=== PATIENT | male | born 1950 | race African-American/Black ===

== ENCOUNTER 2018-11-29 19:25 | Inpatient (IN) | payer MEDICARE, MEDICAID ==
[~2018-11-29] VITALS: Ht 180.3 cm; Wt 60.8 kg
[2018-11-29] MEDS ORDERED: ONDANSETRON HCL 4MG/2ML INJ IV STA (20:16)
[2018-11-29] MEDS ORDERED: MORPHINE SULFATE 4 MG/ML CPJ (NOT FOR IM USE) IV STA (20:16)
[2018-11-29] MEDS ORDERED: SODIUM CHLORIDE 0.9% 500 ML IV ONE (20:30)
[2018-11-29 20:35] LABS: BASOPHILS % 0.2 % (0.0-2.0); CHLORIDE 109 mEq/L (98-107); EOSINOPHILS % 0.1 % (0.0-5.0); LYMPHOCYTES % 10.7 % (20.0-50.0); MEAN CORPUSCULAR HEMOGLOBIN 24.4 pg (28.0-32.0); MEAN CORPUSCULAR VOLUME 79.5 fL (80.0-94.0); MEAN PLATELET VOLUME 6.9 fl (7.4-10.4); MONOCYTES % 6.5 % (2.0-8.0); NEUTROPHILS % 82.5 % (40.0-76.0); PLATELET 617 x1000/uL (130-400); RED BLOOD CELL COUNT 2.35 mill/uL (4.7-6.1); RED CELL DISTRIBUTION WIDTH 19.6 % (11.6-14.6)
[2018-11-29 20:41] LABS: INR 1.3; PROTHROMBIN TIME 13.5 sec (9.1-11.1)
[2018-11-29 20:42] LABS: HEMATOCRIT. 18.7 % (42.0-52.0); HEMOGLOBIN. 5.7 g/dL (14.0-18.0)
[2018-11-29] MEDS ORDERED: POTASSIUM CHLORIDE INJ 40 MEQ in DEXT 5% WATER 250 ML IV ONE (21:00)
[2018-11-29] MEDS ORDERED: POTASSIUM CHLORIDE 20MEQ TABLET SR PO ONE (21:00)
[2018-11-29] MEDS ORDERED: CEFTRIAXONE 1 G PREMIX 50 ML IV ONE (21:15)
[2018-11-29] MEDS ORDERED: SODIUM CHLORIDE 0.9% 1,000 ML IV ONE (21:30)
[2018-11-29] MEDS ORDERED: VANCOMYCIN 1 G PREMIX 200 ML IV SCH (21:30)
[2018-11-29] MEDS ORDERED: PIPERACILLIN/TAZ 3.375G PREMIX 50 ML IV ONE (21:30)
[2018-11-29] MEDS ORDERED: ACETAMINOPHEN 325MG TABLET PO PRN (21:45)
[2018-11-29] MEDS ORDERED: ONDANSETRON HCL 4MG/2ML INJ IV PRN (21:45)
[2018-11-29] MEDS ORDERED: HYDROMORPHONE HCL/PF 2MG/ML CPJ IV ONE (22:30)
[2018-11-30] VITALS (22 sets, daily range): BP systolic 99–128; BP diastolic 66–87
[2018-11-30] MEDS: HYDROMORPHONE HCL/PF 2MG/ML CPJ IV PRN ×4 (04:24→20:40)
[2018-11-30] MEDS: LEVOFLOXACIN 500MG PREMIX 100 ML IV SCH (06:11)
[2018-11-30] MEDS: DEXT 5%/0.45% NACL KCL 10MEQ/L 1,000 ML IV SCH ×2 (07:45→18:38)
[2018-11-30] MEDS: METRONIDAZOLE 500 MG PREMIX 100 ML IV SCH ×3 (07:46→21:40)
[2018-11-30 09:08] LABS: BASOPHILS % 0.1 % (0.0-2.0); LYMPHOCYTES % 7.6 % (20.0-50.0); MEAN CORPUSCULAR HEMOGLOBIN 24.5 pg (28.0-32.0); MEAN CORPUSCULAR VOLUME 79.8 fL (80.0-94.0); MEAN PLATELET VOLUME 6.9 fl (7.4-10.4); MONOCYTES % 5.5 % (2.0-8.0); NEUTROPHILS % 86.8 % (40.0-76.0); PLATELET 571 x1000/uL (130-400); RED BLOOD CELL COUNT 2.36 mill/uL (4.7-6.1); RED CELL DISTRIBUTION WIDTH 19.1 % (11.6-14.6)
[2018-11-30 09:12] LABS: CHLORIDE 113 mEq/L (98-107)
[2018-11-30 09:26] LABS: HEMATOCRIT. 18.8 % (42.0-52.0); HEMOGLOBIN. 5.8 g/dL (14.0-18.0)
[2018-11-30] MEDS ORDERED: SODIUM BICARBONATE 4% (2.4MEQ) 5ML VIAL IV ONE (13:27)
[2018-11-30] MEDS ORDERED: LIDOCAINE HCL 1% 20ML VIAL (Pyxis) INJ ONE ×2 (13:27→14:46)
[2018-11-30] MEDS ORDERED: FENTANYL CITRATE/PF 50MCG/ML 2ML VIAL ONE (13:30)
[2018-11-30] MEDS ORDERED: FENTANYL CITRATE/PF 50MCG/ML 2ML VIAL IV ONE (15:30)
[2018-11-30] MEDS: NYSTATIN POWDER 15GM TOP SCH ×2 (16:07→18:38)
[2018-11-30] MEDS: PANTOPRAZOLE SODIUM 40 MG/VIAL IV SCH (16:07)
[2018-11-30 23:58] LABS: TOTAL IRON BINDING CAPACITY 282 ug/dL (250-450)
[2018-12-01] VITALS (9 sets, daily range): BP systolic 116–136; BP diastolic 74–87
[2018-12-01] MEDS: HYDROMORPHONE HCL/PF 2MG/ML CPJ IV PRN ×5 (02:21→23:41)
[2018-12-01 03:56] LABS: HEMATOCRIT. 25.7 % (42.0-52.0); MEAN CORPUSCULAR HEMOGLOBIN 26.3 pg (28.0-32.0); MEAN CORPUSCULAR VOLUME 84.1 fL (80.0-94.0); MEAN PLATELET VOLUME 6.9 fl (7.4-10.4); PLATELET 432 x1000/uL (130-400); RED BLOOD CELL COUNT 3.06 mill/uL (4.7-6.1); RED CELL DISTRIBUTION WIDTH 18.6 % (11.6-14.6)
[2018-12-01] MEDS: METRONIDAZOLE 500 MG PREMIX 100 ML IV SCH ×3 (05:40→23:41)
[2018-12-01] MEDS: LEVOFLOXACIN 500MG PREMIX 100 ML IV SCH (06:45)
[2018-12-01 07:48] LABS: PLATELET ESTIMATE SLIGHTLY INCREASED
[2018-12-01] MEDS: PANTOPRAZOLE SODIUM 40 MG/VIAL IV SCH (09:17)
[2018-12-01] MEDS: NYSTATIN POWDER 15GM TOP SCH ×3 (09:20→18:00)
[2018-12-01 16:32] LABS: HEMATOCRIT 21.6 % (42.0-52.0)
[2018-12-01 16:42] LABS: HEMOGLOBIN 6.9 g/dL (14.0-18.0)
[2018-12-01] MEDS: DEXT 5%/0.45% NACL KCL 10MEQ/L 1,000 ML IV SCH (17:59)
[2018-12-02] VITALS (11 sets, daily range): BP systolic 118–139; BP diastolic 74–89
[2018-12-02] MEDS: LEVOFLOXACIN 500MG PREMIX 100 ML IV SCH (04:00)
[2018-12-02] MEDS: HYDROMORPHONE HCL/PF 2MG/ML CPJ IV PRN ×5 (04:00→22:06)
[2018-12-02] MEDS: DEXT 5%/0.45% NACL KCL 10MEQ/L 1,000 ML IV SCH ×2 (05:50→19:10)
[2018-12-02] MEDS: PANTOPRAZOLE SODIUM 40 MG/VIAL IV SCH (09:04)
[2018-12-02] MEDS: METRONIDAZOLE 500 MG PREMIX 100 ML IV SCH ×2 (09:05→17:23)
[2018-12-02 13:21] LABS: HEMATOCRIT 25.3 % (42.0-52.0); HEMOGLOBIN 8.2 g/dL (14.0-18.0)
[2018-12-02] MEDS: NYSTATIN POWDER 15GM TOP SCH ×3 (13:37→17:23)
[2018-12-02 21:26] LABS: HEMATOCRIT 25.7 % (42.0-52.0); HEMOGLOBIN 8.3 g/dL (14.0-18.0)
[2018-12-03] VITALS: BP 123/75
[2018-12-03 01:05] LABS: HEMATOCRIT 25.9 % (42.0-52.0); HEMOGLOBIN 8.4 g/dL (14.0-18.0)
[2018-12-03] MEDS: METRONIDAZOLE 500 MG PREMIX 100 ML IV SCH ×2 (01:13→08:35)
[2018-12-03] MEDS: HYDROMORPHONE HCL/PF 2MG/ML CPJ IV PRN ×6 (02:13→23:16)
[2018-12-03 04:00] VITALS: BP 131/88
[2018-12-03] MEDS ORDERED: LEVOFLOXACIN 500MG PREMIX 100 ML IV SCH (05:00)
[2018-12-03 06:44] LABS: HEMATOCRIT 25.5 % (42.0-52.0); HEMOGLOBIN 8.4 g/dL (14.0-18.0)
[2018-12-03 06:57] LABS: CHLORIDE 108 mEq/L (98-107)
[2018-12-03 08:00] VITALS: BP 124/66
[2018-12-03] MEDS: PANTOPRAZOLE SODIUM 40 MG/VIAL IV SCH (08:35)
[2018-12-03] MEDS: NYSTATIN POWDER 15GM TOP SCH ×3 (08:36→18:18)
[2018-12-03] MEDS: POTASSIUM CHLORIDE INJ 40 MEQ in DEXT 5% WATER 250 ML IV SCH ×2 (09:24→13:51)
[2018-12-03 12:00] VITALS: BP 114/77
[2018-12-03 12:04] LABS: HEMATOCRIT 24.8 % (42.0-52.0); HEMOGLOBIN 8.1 g/dL (14.0-18.0)
[2018-12-03] MEDS ORDERED: VANCOMYCIN 1250MG in DEXTROSE 5% WATER 250ML IV SCH (14:00)
[2018-12-03] MEDS: PIPERACILLIN/TAZ 3.375G PREMIX 50 ML IV SCH ×2 (14:16→21:21)
[2018-12-03 16:00] VITALS: BP 112/71
[2018-12-03 20:00] VITALS: BP 112/73
[2018-12-03 20:07] LABS: HEMOGLOBIN 8.1 g/dL (14.0-18.0)
[2018-12-03] MEDS: DEXT 5%/0.45% NACL KCL 10MEQ/L 1,000 ML IV SCH ×2 (21:21→21:50)
[2018-12-03] MEDS: VANCOMYCIN 750 MG PREMIX 150 ML IV SCH (23:11)
[2018-12-04 04:00] VITALS: BP 129/80
[2018-12-04] MEDS: HYDROMORPHONE HCL/PF 2MG/ML CPJ IV PRN ×4 (05:31→19:07)
[2018-12-04] MEDS: PIPERACILLIN/TAZ 3.375G PREMIX 50 ML IV SCH ×3 (05:32→21:43)
[2018-12-04] MEDS: VANCOMYCIN 750 MG PREMIX 150 ML IV SCH ×2 (06:06→14:02)
[2018-12-04 06:09] LABS: BASOPHILS % 0.1 % (0.0-2.0); EOSINOPHILS % 0.3 % (0.0-5.0); HEMOGLOBIN. 7.9 g/dL (14.0-18.0); LYMPHOCYTES % 10.1 % (20.0-50.0); MEAN CORPUSCULAR HEMOGLOBIN 27.4 pg (28.0-32.0); MEAN CORPUSCULAR VOLUME 83.8 fL (80.0-94.0); MEAN PLATELET VOLUME 7.1 fl (7.4-10.4); MONOCYTES % 7.3 % (2.0-8.0); NEUTROPHILS % 82.2 % (40.0-76.0); PLATELET 286 x1000/uL (130-400); RED BLOOD CELL COUNT 2.87 mill/uL (4.7-6.1)
[2018-12-04 06:21] LABS: CHLORIDE 108 mEq/L (98-107)
[2018-12-04 08:00] VITALS: BP 135/80
[2018-12-04] MEDS: PANTOPRAZOLE SODIUM 40 MG/VIAL IV SCH (09:07)
[2018-12-04] MEDS: NYSTATIN POWDER 15GM TOP SCH ×3 (09:07→19:07)
[2018-12-04] MEDS ORDERED: DIATR MEGLU/DIATRIZOATE SOLN 30ML PO SCH (09:30)
[2018-12-04] MEDS ORDERED: IOHEXOL-300 50 ML BOTTLE IV ONE (11:07)
[2018-12-04] MEDS ORDERED: POTASSIUM CHLORIDE 20MEQ/PACKET PO NR (11:15)
[2018-12-04 12:00] VITALS: BP 158/74
[2018-12-04 12:05] LABS: HEMATOCRIT 27.9 % (42.0-52.0); HEMOGLOBIN 8.9 g/dL (14.0-18.0)
[2018-12-04] MEDS ORDERED: MAGNESIUM 2 G PREMIX 50 ML IV NR (13:00)
[2018-12-04 20:00] VITALS: BP 115/73
[2018-12-04] MEDS: DEXT 5%/0.45% NACL KCL 10MEQ/L 1,000 ML IV SCH (21:42)
[2018-12-04 22:02] LABS: HEMOGLOBIN 7.8 g/dL (14.0-18.0)
[2018-12-05] VITALS: BP 119/78
[2018-12-05] MEDS: DEXT 5%/0.45% NACL KCL 10MEQ/L 1,000 ML IV SCH (00:30)
[2018-12-05] MEDS: HYDROMORPHONE HCL/PF 2MG/ML CPJ IV PRN ×4 (00:54→16:09)
[2018-12-05] MEDS: VANCOMYCIN 1 G PREMIX 200 ML IV SCH ×2 (02:13→13:42)
[2018-12-05 04:00] VITALS: BP 128/76
[2018-12-05] MEDS: PIPERACILLIN/TAZ 3.375G PREMIX 50 ML IV SCH ×3 (06:43→21:16)
[2018-12-05 07:21] LABS: HEMATOCRIT 23.9 % (42.0-52.0)
[2018-12-05 07:43] LABS: CHLORIDE 108 mEq/L (98-107)
[2018-12-05 07:59] LABS: PHOSPHORUS 2.5 mg/dL (2.5-4.9)
[2018-12-05 08:00] VITALS: BP 124/79
[2018-12-05] MEDS: PANTOPRAZOLE SODIUM 40 MG/VIAL IV SCH (09:16)
[2018-12-05] MEDS: NYSTATIN POWDER 15GM TOP SCH ×3 (09:22→16:19)
[2018-12-05] MEDS ORDERED: PANTOPRAZOLE SODIUM 40 MG/VIAL IV SCH (09:30)
[2018-12-05] MEDS ORDERED: ONDANSETRON HCL 4MG/2ML INJ IV PRN (09:30)
[2018-12-05] MEDS ORDERED: SODIUM CHLORIDE 0.9% 1,000 ML IV SCH (09:30)
[2018-12-05 12:00] VITALS: BP 104/78
[2018-12-05 12:05] LABS: HEMATOCRIT 23.2 % (42.0-52.0); HEMOGLOBIN 7.6 g/dL (14.0-18.0)
[2018-12-05 16:00] VITALS: BP 110/71
[2018-12-05 20:00] VITALS: BP 120/77
[2018-12-05] MEDS: MORPHINE SULFATE 4 MG/ML CPJ (NOT FOR IM USE) IV PRN (21:16)
[2018-12-06] VITALS: BP 128/86
[2018-12-06] MEDS: VANCOMYCIN 1 G PREMIX 200 ML IV SCH ×2 (02:12→15:04)
[2018-12-06] MEDS: HYDROMORPHONE HCL/PF 2MG/ML CPJ IV PRN ×5 (02:13→22:31)
[2018-12-06 04:00] VITALS: BP 126/73
[2018-12-06] MEDS: PIPERACILLIN/TAZ 3.375G PREMIX 50 ML IV SCH ×3 (05:38→21:49)
[2018-12-06 08:00] VITALS: BP 120/80
[2018-12-06] MEDS: PANTOPRAZOLE SODIUM 40 MG/VIAL IV SCH (08:13)
[2018-12-06] MEDS: NYSTATIN POWDER 15GM TOP SCH ×3 (08:14→17:39)
[2018-12-06] MEDS: MORPHINE SULFATE 4 MG/ML CPJ (NOT FOR IM USE) IV PRN (11:37)
[2018-12-06 12:00] VITALS: BP 115/68
[2018-12-06] MEDS: DEXT 5%/0.45% NACL KCL 10MEQ/L 1,000 ML IV SCH (13:08)
[2018-12-06 16:00] VITALS: BP 102/66
[2018-12-06 20:00] VITALS: BP 121/73
[2018-12-07] VITALS: BP 147/79
[2018-12-07] MEDS: VANCOMYCIN 1 G PREMIX 200 ML IV SCH ×2 (01:07→13:31)
[2018-12-07] MEDS: DEXT 5%/0.45% NACL KCL 10MEQ/L 1,000 ML IV SCH ×2 (01:08→22:37)
[2018-12-07] MEDS: HYDROMORPHONE HCL/PF 2MG/ML CPJ IV PRN ×4 (02:55→20:57)
[2018-12-07 04:00] VITALS: BP 127/76
[2018-12-07] MEDS: PIPERACILLIN/TAZ 3.375G PREMIX 50 ML IV SCH ×3 (06:24→21:01)
[2018-12-07 07:51] LABS: CHLORIDE 113 mEq/L (98-107)
[2018-12-07 08:00] VITALS: BP 128/76
[2018-12-07] MEDS: PANTOPRAZOLE SODIUM 40 MG/VIAL IV SCH (08:58)
[2018-12-07] MEDS: NYSTATIN POWDER 15GM TOP SCH ×3 (08:59→16:29)
[2018-12-07 12:00] VITALS: BP 119/74
[2018-12-07] MEDS ORDERED: POTASSIUM CHLORIDE 20MEQ/PACKET PO NR (15:15)
[2018-12-07 16:00] VITALS: BP 113/71
[2018-12-07] MEDS ORDERED: KCL 20MEQ/100ML PREMIX 100 ML IV SCH (16:30)
[2018-12-07 20:00] VITALS: BP 126/77
[2018-12-08] VITALS: BP 131/83
[2018-12-08] MEDS: VANCOMYCIN 750 MG PREMIX 150 ML IV SCH ×2 (01:01→13:18)
[2018-12-08] MEDS: HYDROMORPHONE HCL/PF 2MG/ML CPJ IV PRN ×6 (01:02→21:27)
[2018-12-08 04:00] VITALS: BP 131/88
[2018-12-08] MEDS: PIPERACILLIN/TAZ 3.375G PREMIX 50 ML IV SCH ×3 (05:02→21:26)
[2018-12-08 06:33] LABS: BASOPHILS % 0.2 % (0.0-2.0); EOSINOPHILS % 0.4 % (0.0-5.0); HEMATOCRIT. 23.6 % (42.0-52.0); HEMOGLOBIN. 7.6 g/dL (14.0-18.0); LYMPHOCYTES % 10.8 % (20.0-50.0); MEAN CORPUSCULAR HEMOGLOBIN 26.9 pg (28.0-32.0); MEAN CORPUSCULAR VOLUME 83.2 fL (80.0-94.0); MEAN PLATELET VOLUME 7.3 fl (7.4-10.4); MONOCYTES % 10.5 % (2.0-8.0); NEUTROPHILS % 78.1 % (40.0-76.0); PLATELET 409 x1000/uL (130-400); RED BLOOD CELL COUNT 2.83 mill/uL (4.7-6.1); RED CELL DISTRIBUTION WIDTH 19.7 % (11.6-14.6)
[2018-12-08 08:00] VITALS: BP 130/89
[2018-12-08] MEDS: PANTOPRAZOLE SODIUM 40 MG/VIAL IV SCH (09:14)
[2018-12-08] MEDS: DEXT 5%/0.45% NACL KCL 10MEQ/L 1,000 ML IV SCH ×2 (09:14→21:26)
[2018-12-08] MEDS: POTASSIUM CHLORIDE 20MEQ TABLET SR PO SCH (09:14)
[2018-12-08] MEDS: NYSTATIN POWDER 15GM TOP SCH ×3 (09:30→17:20)
[2018-12-08 12:00] VITALS: BP 125/82
[2018-12-08 16:00] VITALS: BP 132/69
[2018-12-08 20:00] VITALS: BP 126/77
[2018-12-09] VITALS: BP 119/76
[2018-12-09] MEDS: VANCOMYCIN 750 MG PREMIX 150 ML IV SCH (02:11)
[2018-12-09] MEDS: HYDROMORPHONE HCL/PF 2MG/ML CPJ IV PRN ×6 (02:18→23:33)
[2018-12-09 04:00] VITALS: BP 129/80
[2018-12-09] MEDS: PIPERACILLIN/TAZ 3.375G PREMIX 50 ML IV SCH ×3 (06:03→21:46)
[2018-12-09 07:18] LABS: CHLORIDE 119 mEq/L (98-107)
[2018-12-09 08:00] VITALS: BP 134/84
[2018-12-09] MEDS: PANTOPRAZOLE SODIUM 40 MG/VIAL IV SCH (09:52)
[2018-12-09] MEDS: POTASSIUM CHLORIDE 20MEQ TABLET SR PO SCH (09:53)
[2018-12-09] MEDS: NYSTATIN POWDER 15GM TOP SCH ×3 (09:54→17:59)
[2018-12-09] MEDS: DEXT 5%/0.45% NACL KCL 10MEQ/L 1,000 ML IV SCH (11:54)
[2018-12-09 12:00] VITALS: BP 121/78
[2018-12-09 16:33] VITALS: BP 118/76
[2018-12-09] MEDS ORDERED: HYDROMORPHONE HCL/PF 2MG/ML CPJ IV PRN (18:15)
[2018-12-09 20:00] VITALS: BP 113/75
[2018-12-10] VITALS: BP 121/80
[2018-12-10 04:00] VITALS: BP 117/73
[2018-12-10] MEDS: HYDROMORPHONE HCL/PF 2MG/ML CPJ IV PRN ×5 (04:07→21:40)
[2018-12-10] MEDS: PIPERACILLIN/TAZ 3.375G PREMIX 50 ML IV SCH ×2 (05:51→15:33)
[2018-12-10] MEDS: DEXT 5%/0.45% NACL KCL 10MEQ/L 1,000 ML IV SCH ×2 (05:51→15:34)
[2018-12-10 08:00] VITALS: BP 121/68
[2018-12-10] MEDS: POTASSIUM CHLORIDE 20MEQ TABLET SR PO SCH (08:29)
[2018-12-10] MEDS: PANTOPRAZOLE SODIUM 40 MG/VIAL IV SCH (08:29)
[2018-12-10] MEDS: NYSTATIN POWDER 15GM TOP SCH ×2 (08:30→15:34)
[2018-12-10 12:00] VITALS: BP 128/84
[2018-12-10 17:00] VITALS: BP 124/71
[2018-12-10 20:00] VITALS: BP 123/71
[2018-12-11] VITALS: BP 121/76
[2018-12-11] MEDS: HYDROMORPHONE HCL/PF 2MG/ML CPJ IV PRN ×7 (01:37→23:11)
[2018-12-11 04:00] VITALS: BP 124/79
[2018-12-11] MEDS: DEXT 5%/0.45% NACL KCL 10MEQ/L 1,000 ML IV SCH ×2 (05:18→19:32)
[2018-12-11 08:00] VITALS: BP 123/75
[2018-12-11] MEDS: PANTOPRAZOLE SODIUM 40 MG/VIAL IV SCH (09:06)
[2018-12-11] MEDS: POTASSIUM CHLORIDE 20MEQ TABLET SR PO SCH (09:07)
[2018-12-11 12:00] VITALS: BP 141/90
[2018-12-11] MEDS: PIPERACILLIN/TAZ 3.375G PREMIX 50 ML IV SCH ×2 (15:04→21:09)
[2018-12-11 16:00] VITALS: BP 125/75
[2018-12-11 20:00] VITALS: BP 131/83
[2018-12-12] VITALS: BP 159/84
[2018-12-12] MEDS: HYDROMORPHONE HCL/PF 2MG/ML CPJ IV PRN ×5 (02:57→20:26)
[2018-12-12 04:00] VITALS: BP 119/77
[2018-12-12] MEDS: PIPERACILLIN/TAZ 3.375G PREMIX 50 ML IV SCH ×3 (06:06→23:25)
[2018-12-12 08:00] VITALS: BP 129/79
[2018-12-12] MEDS: POTASSIUM CHLORIDE 20MEQ TABLET SR PO SCH (09:18)
[2018-12-12] MEDS: PANTOPRAZOLE SODIUM 40 MG/VIAL IV SCH (09:18)
[2018-12-12] MEDS: HYDROCODONE/ACETAMINOPHEN 10/325MG TABLET PO PRN ×2 (11:05→23:38)
[2018-12-12 12:00] VITALS: BP 129/78
[2018-12-12] MEDS: DEXT 5%/0.45% NACL KCL 10MEQ/L 1,000 ML IV SCH ×2 (14:04→19:10)
[2018-12-12 16:00] VITALS: BP 107/67
[2018-12-12 20:00] VITALS: BP 129/75
[2018-12-13] VITALS: BP 122/80
[2018-12-13] MEDS: HYDROMORPHONE HCL/PF 2MG/ML CPJ IV PRN ×4 (03:44→18:29)
[2018-12-13 04:00] VITALS: BP 131/79
[2018-12-13] MEDS: DEXT 5%/0.45% NACL KCL 10MEQ/L 1,000 ML IV SCH ×2 (04:48→23:22)
[2018-12-13] MEDS: PIPERACILLIN/TAZ 3.375G PREMIX 50 ML IV SCH ×3 (06:37→23:22)
[2018-12-13 07:03] LABS: BASOPHILS % 0.4 % (0.0-2.0); EOSINOPHILS % 0.7 % (0.0-5.0); HEMATOCRIT. 24.6 % (42.0-52.0); HEMOGLOBIN. 7.8 g/dL (14.0-18.0); LYMPHOCYTES % 10.2 % (20.0-50.0); MEAN CORPUSCULAR HEMOGLOBIN 26.6 pg (28.0-32.0); MEAN CORPUSCULAR VOLUME 83.5 fL (80.0-94.0); MEAN PLATELET VOLUME 7.7 fl (7.4-10.4); MONOCYTES % 8.7 % (2.0-8.0); PLATELET 465 x1000/uL (130-400); RED BLOOD CELL COUNT 2.94 mill/uL (4.7-6.1); RED CELL DISTRIBUTION WIDTH 21.1 % (11.6-14.6)
[2018-12-13 07:54] LABS: CHLORIDE 114 mEq/L (98-107)
[2018-12-13] MEDS: POTASSIUM CHLORIDE 20MEQ TABLET SR PO SCH (08:10)
[2018-12-13] MEDS: PANTOPRAZOLE SODIUM 40 MG/VIAL IV SCH (08:10)
[2018-12-13 10:14] VITALS: BP 129/78
[2018-12-13] MEDS: HYDROCODONE/ACETAMINOPHEN 10/325MG TABLET PO PRN ×2 (14:48→22:26)
[2018-12-13 16:00] VITALS: BP 111/71
[2018-12-13] MEDS ORDERED: POTASSIUM CHLORIDE 20MEQ TABLET SR PO NR (16:00)
[2018-12-13] MEDS ORDERED: POTASSIUM CHLORIDE INJ 40 MEQ in DEXT 5% WATER 250 ML IV NR (18:00)
[2018-12-13 20:00] VITALS: BP 121/79
[2018-12-14] VITALS: BP 121/79
[2018-12-14] MEDS: HYDROMORPHONE HCL/PF 2MG/ML CPJ IV PRN ×3 (01:50→22:04)
[2018-12-14 04:00] VITALS: BP 125/86
[2018-12-14] MEDS: PIPERACILLIN/TAZ 3.375G PREMIX 50 ML IV SCH (05:50)
[2018-12-14] MEDS: HYDROCODONE/ACETAMINOPHEN 10/325MG TABLET PO PRN ×3 (06:22→17:41)
[2018-12-14 08:00] VITALS: BP 127/78
[2018-12-14] MEDS: POTASSIUM CHLORIDE 20MEQ TABLET SR PO SCH (09:12)
[2018-12-14] MEDS: PANTOPRAZOLE SODIUM 40 MG/VIAL IV SCH (09:12)
[2018-12-14 12:11] VITALS: BP_SYST 121; BP_SYST 127; BP_DIAS 59; BP_DIAS 82
[2018-12-14 16:00] VITALS: BP 120/79
[2018-12-14 20:00] VITALS: BP 117/76
[2018-12-15] VITALS (7 sets, daily range): BP systolic 109–125; BP diastolic 67–78
[2018-12-15] MEDS: HYDROMORPHONE HCL/PF 2MG/ML CPJ IV PRN (04:04)
[2018-12-15] MEDS: PANTOPRAZOLE SODIUM 40 MG/VIAL IV SCH (08:37)
[2018-12-15] MEDS: POTASSIUM CHLORIDE 20MEQ TABLET SR PO SCH (08:37)
[2018-12-15] MEDS: HYDROCODONE/ACETAMINOPHEN 10/325MG TABLET PO PRN ×3 (08:39→18:46)
[2018-12-15] MEDS: DEXT 5%/0.45% NACL KCL 10MEQ/L 1,000 ML IV SCH (12:58)
== END 2018-12-15 21:27 | DRG 871 ==
LOC: ER 19:25 → 5WST 21:10 → EDBD 21:10 → SUPCPDRO 21:41 → EDBEDREQSVC 23:24 → ENRESERV 23:39 → 5WST 11-30 03:08
PROVIDERS: ADMIT Internal Medicine; ATTEND Internal Medicine
PROC: 02HV33Z Insertion of Infusion Device into Superior Vena Cava, Percutaneous Approach (ICD-10-PCS; principal; 2018-11-30)
PROC: B5181ZA Fluoroscopy of Superior Vena Cava using Low Osmolar Contrast, Guidance (ICD-10-PCS; 2018-11-30)
PROC: B548ZZA Ultrasonography of Superior Vena Cava, Guidance (ICD-10-PCS; 2018-11-30)
PROC: 30233N1 Transfusion of Nonautologous Red Blood Cells into Peripheral Vein, Percutaneous Approach (ICD-10-PCS; 2018-11-30)
PROC: 0W2GX0Z Change Drainage Device in Peritoneal Cavity, External Approach (ICD-10-PCS; 2018-11-30)
DX: A41.9 Sepsis, unspecified organism (principal); E43 Unspecified severe protein-calorie malnutrition; K65.1 Peritoneal abscess; C19 Malignant neoplasm of rectosigmoid junction; I42.9 Cardiomyopathy, unspecified; I96 Gangrene, not elsewhere classified; J44.1 Chronic obstructive pulmonary disease with (acute) exacerbation; I82.403 Acute embolism and thrombosis of unspecified deep veins of lower extremity, bilateral; Z68.1 Body mass index [BMI] 19.9 or less, adult; D50.9 Iron deficiency anemia, unspecified; I10 Essential (primary) hypertension; E87.6 Hypokalemia; K21.9 Gastro-esophageal reflux disease without esophagitis; D63.8 Anemia in other chronic diseases classified elsewhere; I25.10 Atherosclerotic heart disease of native coronary artery without angina pectoris; I25.2 Old myocardial infarction; Z87.01 Personal history of pneumonia (recurrent); Z87.891 Personal history of nicotine dependence; Z93.2 Ileostomy status; Z93.3 Colostomy status
CPT/HCPCS: 36415; 36569; 36573; 49180; 71045; 74176; 75984; 80048; 80076; 80202; 82378; 82728; 83540; 83550; 83605; 83735; 83880; 84100; 84134; 84484; 85014; 85018; 86850; 86870; 86900; 86920; 92610; 93005; 93922; 93970; 93971; 99291; A6261; C1725; C1729; C1769; C9113; J0696; J1170; J1956; J2270; J2405; J2543; J3010; J3370; J3475; J3480; J3490; J7030; J7040; J7050; J7060; P9016; Q9967; A4315

== ENCOUNTER 2018-12-25 11:14 | Inpatient (IN) | payer MEDICARE, MEDICAID ==
[~2018-12-25] VITALS: Ht 182.9 cm; Wt 56.7 kg
[2018-12-25] MEDS ORDERED: SODIUM CHLORIDE 0.9% 1000ML BAG (SEPSIS BOLUS) IV ONE (11:45)
[2018-12-25 12:13] LABS: BASOPHILS % 0.1 % (0.0-2.0); HEMATOCRIT. 23.3 % (42.0-52.0); HEMOGLOBIN. 7.1 g/dL (14.0-18.0); LYMPHOCYTES % 16.3 % (20.0-50.0); MEAN CORPUSCULAR HEMOGLOBIN 26.3 pg (28.0-32.0); MEAN CORPUSCULAR VOLUME 86.9 fL (80.0-94.0); MEAN PLATELET VOLUME 7.8 fl (7.4-10.4); MONOCYTES % 7.5 % (2.0-8.0); NEUTROPHILS % 76.1 % (40.0-76.0); PLATELET 476 x1000/uL (130-400); RED BLOOD CELL COUNT 2.69 mill/uL (4.7-6.1); RED CELL DISTRIBUTION WIDTH 23.8 % (11.6-14.6)
[2018-12-25 12:21] LABS: CHLORIDE 121 mEq/L (98-107); INR 1.5
[2018-12-25 12:36] LABS: CLARITY URINE CLOUDY (CLEAR); COLOR URINE AMBER (YELLOW); KETONES URINE TRACE (NEGATIVE); LEUKOCYTE ESTERASE URINE 1+ (NEGATIVE); NITRITE URINE NEGATIVE (NEGATIVE); OCCULT BLOOD URINE NEGATIVE (NEGATIVE); PROTEIN URINE 1+ (NEGATIVE); SPECIFIC GRAVITY URINE 1.021 (1.005-1.030); UROBILINOGEN URINE 0.2 E.U./dL (0.2-1.0)
[2018-12-25] MEDS ORDERED: CEFTRIAXONE 2 G PREMIX 50 ML IV ONE (12:45)
[2018-12-25] MEDS ORDERED: METRONIDAZOLE 500 MG PREMIX 100 ML IV ONE (12:45)
[2018-12-25 13:14] LABS: PLATELET ESTIMATE INCREASED
[2018-12-25] MEDS ORDERED: MAGNESIUM/ALUMINUM HYDROXIDE/SIMETHICONE 30ML UDC PO PRN (14:30)
[2018-12-25] MEDS ORDERED: ACETAMINOPHEN 325MG TABLET PO PRN (14:30)
[2018-12-25] MEDS ORDERED: IPRATROPIUM/ALBUTEROL 0.5-3(2.5)MG/3ML NEB INH PRN (14:30)
[2018-12-25] MEDS ORDERED: CLONIDINE 0.1MG TABLET PO PRN (14:30)
[2018-12-25] MEDS ORDERED: NA PHOS,M-B/NA PHOS,DI-BA ENEMA 118ML PR PRN (14:30)
[2018-12-25] MEDS ORDERED: GUAIFENESIN 200MG/10ML SUGAR FREE UDC PO PRN (14:30)
[2018-12-25] MEDS ORDERED: NITROGLYCERIN 0.4MG TABLET SL SL PRN (14:30)
[2018-12-25] MEDS ORDERED: ONDANSETRON HCL 4MG/2ML INJ IV PRN (14:30)
[2018-12-25] MEDS ORDERED: DOCUSATE SODIUM 100MG CAPSULE PO PRN (14:30)
[2018-12-25 15:59] VITALS: BP 165/55
[2018-12-25 16:00] VITALS: BP 127/83
[2018-12-25] MEDS ORDERED: ENOXAPARIN 40MG/0.4ML SYR SUBCUT SCH (16:00)
[2018-12-25] MEDS ORDERED: VANCOMYCIN 1500MG in DEXTROSE 5% WATER 250ML IV NR (17:00)
[2018-12-25 18:00] VITALS: BP 114/75
[2018-12-25] MEDS: PIPERACILLIN/TAZ 3.375G PREMIX 50 ML IV SCH ×2 (18:24→23:46)
[2018-12-25] MEDS: DEXT 5%/0.45% NACL 1000ML 1,000 ML IV SCH (18:27)
[2018-12-25 19:31] VITALS: BP 110/72
[2018-12-25 20:14] VITALS: BP 114/76
[2018-12-25] MEDS ORDERED: ZOLPIDEM TARTRATE 5MG TABLET PO PRN (21:00)
[2018-12-25] MEDS: ASCORBIC ACID 500 MG TABLET PO SCH (21:16)
[2018-12-25] MEDS: FAMOTIDINE 20MG TABLET PO SCH (21:16)
[2018-12-25] MEDS: TRAMADOL 50MG TABLET PO PRN (21:17)
[2018-12-25 22:07] VITALS: BP 103/70
[2018-12-26] VITALS (18 sets, daily range): BP systolic 102–121; BP diastolic 63–76
[2018-12-26] MEDS ORDERED: VANCOMYCIN 750 MG PREMIX 150 ML IV SCH ×2 (04:00→08:00)
[2018-12-26] MEDS: PIPERACILLIN/TAZ 3.375G PREMIX 50 ML IV SCH ×3 (06:33→18:43)
[2018-12-26 07:28] LABS: HEMATOCRIT 26.3 % (42.0-52.0); HEMOGLOBIN 8.4 g/dL (14.0-18.0)
[2018-12-26] MEDS: FAMOTIDINE 20MG TABLET PO SCH ×2 (08:05→20:14)
[2018-12-26] MEDS: ASCORBIC ACID 500 MG TABLET PO SCH ×2 (08:05→20:14)
[2018-12-26] MEDS: ZINC SULFATE 220 MG ( 50 ) CAPSULE PO SCH (08:05)
[2018-12-26] MEDS: MORPHINE SULFATE 4 MG/ML CPJ (NOT FOR IM USE) IV PRN (12:00)
[2018-12-26] MEDS: ENOXAPARIN 60MG/0.6ML SYR SUBCUT SCH (16:23)
[2018-12-26] MEDS: FLUCONAZOLE 100MG TABLET PO SCH (16:23)
[2018-12-26] MEDS: DEXT 5%/0.45% NACL 1000ML 1,000 ML IV SCH (16:24)
[2018-12-26] MEDS: TRAMADOL 50MG TABLET PO PRN (16:31)
[2018-12-26] MEDS ORDERED: VANCOMYCIN 1 G PREMIX 200 ML IV SCH (21:00)
[2018-12-27] VITALS (13 sets, daily range): BP systolic 93–122; BP diastolic 60–77
[2018-12-27] MEDS: PIPERACILLIN/TAZ 3.375G PREMIX 50 ML IV SCH ×5 (00:17→23:59)
[2018-12-27] MEDS: ENOXAPARIN 60MG/0.6ML SYR SUBCUT SCH ×2 (05:01→16:08)
[2018-12-27 06:19] LABS: HEMATOCRIT. 30.4 % (42.0-52.0); HEMOGLOBIN. 9.8 g/dL (14.0-18.0); MEAN CORPUSCULAR HEMOGLOBIN 27.6 pg (28.0-32.0); MEAN CORPUSCULAR VOLUME 85.6 fL (80.0-94.0); MEAN PLATELET VOLUME 8.4 fl (7.4-10.4); PLATELET 407 x1000/uL (130-400); RED BLOOD CELL COUNT 3.55 mill/uL (4.7-6.1); RED CELL DISTRIBUTION WIDTH 21.4 % (11.6-14.6)
[2018-12-27 07:49] LABS: CHLORIDE 113 mEq/L (98-107)
[2018-12-27] MEDS: ASCORBIC ACID 500 MG TABLET PO SCH ×2 (09:06→21:30)
[2018-12-27] MEDS: MORPHINE SULFATE 4 MG/ML CPJ (NOT FOR IM USE) IV PRN (09:06)
[2018-12-27] MEDS: FAMOTIDINE 20MG TABLET PO SCH ×2 (09:07→21:31)
[2018-12-27] MEDS: ZINC SULFATE 220 MG ( 50 ) CAPSULE PO SCH (09:07)
[2018-12-27] MEDS: FLUCONAZOLE 100MG TABLET PO SCH (09:07)
[2018-12-27 09:42] LABS: NUCLEATED RED BLOOD CELLS 1 /100 WBC
[2018-12-27 09:43] LABS: PLATELET ESTIMATE SLIGHTLY INCREASED
[2018-12-27] MEDS ORDERED: VANCOMYCIN 1 G PREMIX 200 ML IV SCH (12:00)
[2018-12-27] MEDS: VANCOMYCIN 1 G PREMIX 200 ML IV SCH (16:03)
[2018-12-27] MEDS: DEXT 5%/0.45% NACL 1000ML 1,000 ML IV SCH (16:04)
[2018-12-28] VITALS (12 sets, daily range): BP systolic 110–133; BP diastolic 54–76
[2018-12-28] MEDS: MORPHINE SULFATE 4 MG/ML CPJ (NOT FOR IM USE) IV PRN ×2 (00:09→09:06)
[2018-12-28] MEDS: DEXT 5%/0.45% NACL 1000ML 1,000 ML IV SCH ×3 (03:58→23:56)
[2018-12-28] MEDS: ENOXAPARIN 60MG/0.6ML SYR SUBCUT SCH ×2 (03:59→17:22)
[2018-12-28] MEDS: PIPERACILLIN/TAZ 3.375G PREMIX 50 ML IV SCH ×4 (05:08→23:52)
[2018-12-28] MEDS: FLUCONAZOLE 100MG TABLET PO SCH (08:43)
[2018-12-28] MEDS: ZINC SULFATE 220 MG ( 50 ) CAPSULE PO SCH (08:43)
[2018-12-28] MEDS: FAMOTIDINE 20MG TABLET PO SCH ×2 (08:43→21:40)
[2018-12-28] MEDS: ASCORBIC ACID 500 MG TABLET PO SCH ×2 (08:43→21:40)
[2018-12-28] MEDS: VANCOMYCIN 1 G PREMIX 200 ML IV SCH (09:06)
[2018-12-28] MEDS ORDERED: LIDOCAINE HCL 1% 20ML VIAL (Pyxis) INJ ONE (10:43)
[2018-12-29] VITALS (12 sets, daily range): BP systolic 109–145; BP diastolic 71–85
[2018-12-29] MEDS: MORPHINE SULFATE 4 MG/ML CPJ (NOT FOR IM USE) IV PRN ×2 (01:54→06:32)
[2018-12-29] MEDS: VANCOMYCIN 1 G PREMIX 200 ML IV SCH (04:10)
[2018-12-29] MEDS: ENOXAPARIN 60MG/0.6ML SYR SUBCUT SCH ×2 (04:10→17:02)
[2018-12-29] MEDS: PIPERACILLIN/TAZ 3.375G PREMIX 50 ML IV SCH ×3 (06:32→18:09)
[2018-12-29] MEDS: ZINC SULFATE 220 MG ( 50 ) CAPSULE PO SCH (09:25)
[2018-12-29] MEDS: FAMOTIDINE 20MG TABLET PO SCH (09:25)
[2018-12-29] MEDS: FLUCONAZOLE 100MG TABLET PO SCH (09:25)
[2018-12-29] MEDS: ASCORBIC ACID 500 MG TABLET PO SCH (09:25)
[2018-12-29] MEDS: DEXT 5%/0.45% NACL 1000ML 1,000 ML IV SCH (09:30)
[2018-12-29 11:04] LABS: CHLORIDE 117 mEq/L (98-107)
[2018-12-29] MEDS ORDERED: POTASSIUM CHLORIDE 20MEQ TABLET SR PO NR (11:45)
[2018-12-29] MEDS ORDERED: DEXT 5%/0.45% NACL KCL 40MEQ/L 1,000 ML IV SCH (12:00)
[2018-12-29] MEDS: TRAMADOL 50MG TABLET PO PRN (12:17)
[2018-12-29] MEDS ORDERED: MAGNESIUM 2 G PREMIX 50 ML IV NR (15:30)
== END 2018-12-29 21:31 | DRG 871 ==
LOC: ER 11:14 → 3WST 13:18 → EDBEDREQTM 13:23 → EDBEDREQ 13:23 → ENRESERV 13:34
PROVIDERS: ADMIT Internal Medicine; ATTEND Internal Medicine
PROC: 30233N1 Transfusion of Nonautologous Red Blood Cells into Peripheral Vein, Percutaneous Approach (ICD-10-PCS; 2018-12-26)
PROC: 02HV33Z Insertion of Infusion Device into Superior Vena Cava, Percutaneous Approach (ICD-10-PCS; principal; 2018-12-28)
PROC: B548ZZA Ultrasonography of Superior Vena Cava, Guidance (ICD-10-PCS; 2018-12-28)
PROC: B5181ZA Fluoroscopy of Superior Vena Cava using Low Osmolar Contrast, Guidance (ICD-10-PCS; 2018-12-28)
DX: A41.9 Sepsis, unspecified organism (principal); G92 Toxic encephalopathy; J18.8 Other pneumonia, unspecified organism; K65.1 Peritoneal abscess; E43 Unspecified severe protein-calorie malnutrition; I42.9 Cardiomyopathy, unspecified; E87.1 Hypo-osmolality and hyponatremia; I96 Gangrene, not elsewhere classified; N39.0 Urinary tract infection, site not specified; I82.403 Acute embolism and thrombosis of unspecified deep veins of lower extremity, bilateral; B49 Unspecified mycosis; E87.0 Hyperosmolality and hypernatremia; J44.0 Chronic obstructive pulmonary disease with (acute) lower respiratory infection; K63.2 Fistula of intestine; Z68.1 Body mass index [BMI] 19.9 or less, adult; D63.8 Anemia in other chronic diseases classified elsewhere; J44.9 Chronic obstructive pulmonary disease, unspecified; R62.7 Adult failure to thrive; E87.6 Hypokalemia; I10 Essential (primary) hypertension; K21.9 Gastro-esophageal reflux disease without esophagitis; R65.20 Severe sepsis without septic shock; Y95 Nosocomial condition; Z85.048 Personal history of other malignant neoplasm of rectum, rectosigmoid junction, and anus; I25.2 Old myocardial infarction
CPT/HCPCS: 36415; 36569; 36573; 71045; 74176; 80048; 80202; 82962; 83036; 83605; 83735; 84134; 84145; 84484; 85014; 85018; 86850; 86870; 86900; 86920; 87106; 93005; 93970; 99291; A6261; C1725; J1650; J2270; J2543; J3370; J3475; J3490; J7030; J7050; J7060; P9016; A4315